=== PATIENT | male | born 1960 | race American Indian/Alaskan Native ===

== ENCOUNTER 2019-02-07 11:20 | Day surgery (SDC) | payer OTHER ==
[~2019-02-07 11:20] MED LIST: SODIUM CHLORIDE 0.9% 1000 ML 1,000 ML IV SCH
[2019-02-07] MEDS ORDERED: LIDOCAINE MPF (2%) 20 MG/1 ML VIAL 5 ML ONE (11:30)
--- NOTE | 2019-02-07 11:30 | Anesthesia Day of Surgery ---
Anesthesia Day of Surgery - Day of Surgery Patient Examined: Yes Patient H&P Reviewed: Yes Patient is NPO: Yes Beta Blockers: No Cardiac Clearance: No Pulmonary Clearance: No Matthew's Test: N/A
--- NOTE | 2019-02-07 11:45 | Anesthesia Consultation ---
Anesthesia Consult and Med Hx Date of service: 02/07/19 - Airway Anesthetic Teeth Evaluation: Good ROM Head & Neck: Adequate Mental/Hyoid Distance: Adequate Mallampati Class: Class IV Intubation Access Assessment: Possibly Difficult - Pre-Operative Health Status ASA Pre-Surgery Classification: ASA3 Proposed Anesthetic Plan: General, MAC - Cardiovascular System Hx Hypertension: Yes - Gastrointestinal Hx Ulcer: No (h/o polyps)
[2019-02-07] MEDS ORDERED: WATER FOR IRRIG STERILE 250 ML BOTTLE IR ONE (11:49)
[2019-02-07] MEDS ORDERED: SIMETHICONE 40 MG/0.6 ML ORAL DROP 30ML PO ONE (12:06)
[2019-02-07] MEDS ORDERED: PROPOFOL 200 MG/20 ML VIAL IV ONE ×2 (12:34)
--- NOTE | 2019-02-07 12:34 | Operative Report ---
Operative Report Operative Report: Procedure: Colonoscopy with Multiple Hot Biopsy polypectomies, Polyp Ablations. Attending physician: Emmett Casillas M.D. Hand Miter Operator: Emmett Casillas M.D. Indication: Patient is a 61-year-old male who presents for colonoscopy because of a personal history of colon polyps. This colonoscopy serves to evaluate patient so that treatment may be directed based on the findings. Consent: Informed consent was obtained after advising the patient and family regarding nature of this procedure, its indications, potential benefits as well as possible complications including but not limited to bleeding perforation and adverse reaction to medication, infection as well as other cardiopulmonary complications. An informed written and verbal consent was then obtained after due opportunity was provided for questions and answers. Monitoring: Patient was monitored continuously with pulse oximetry and electroc ardiographic recordings as well as blood pressure recordings. Vital signs remained stable throughout this procedure with no untoward events. Preoperative assessment: Patient was assessed immediately prior to this procedure for capacity to tolerate monitored anesthesia care and moderate sedation as well as general anesthesia. Patient's ASA classification is 2, Mallampati class is 3, Hyomental distance is 3. Instrument: Olympus video colonoscope CF-HQ 190L Medications: Propofol given intravenously in divided doses. For details please refer to anesthesia records. Description of procedure: Patient was placed in the left lateral decubitus position after achieving sedation, a digital rectal examination was performed following which the colonoscope was introduced into the anal verge and advanced to the cecum which was identified by the cecal valve, the appendiceal orifice, as well as by the cecal strap and direct transillumination. The colonoscope was subsequently withdrawn with careful inspection of all mucosal surfaces. Patient tolerated this procedure well and was subsequently taken to the recovery room. The following findings were noted. Findings: [place] bowel preparation scale score : 6. : Patient had adequate colonoscopic preparation with no significant residual stool in the right colon and transverse colon and left colon. The overall preparation therefore deemed a dequate with a scale score of 6. The withdrawal time from the cecum was greater than 6 minutes. The cecum, ascending colon, transverse colon, descending colon, sigmoid colon and rectum were carefully examined. Patient had substantial retained stool in the cecum however this was completely irrigated until the cecum was clear of stool. In the cecum, patient had 3 diminutive polyps. 2 flat polyps measuring approximately 4 mm each which were completely ablated and a sessile 6 mm polyp which was removed by hot biopsy polypectomy and retrieved. In the transverse colon, patient had 3 diminutive polyps each measuring approximately 5 mm. 2 polyps were sessile one was flat. All 3 polyps removed by hot biopsy polypectomy and retrieved. The descending colon was normal. The sigmoid colon was normal. The rectum was normal.. On a retroflexed view of the anal verge, patient had internal hemorrhoids. Impression: Cecal polyp status post hot biopsy polypectomy Cecal polyps status post ablation Multiple transverse colon polyps status post hot biopsy polypectomy Internal hemorrhoids Plan: Follow pathology report. High-fiber diet. Repeat colonoscopy in 5 years
--- NOTE | 2019-02-07 12:34 | Discharge Summary ---
Short Stay Discharge Plan Activity: advance as tolerated Weight Bearing Status: Weight Bear as Tolerated Diet: regular Follow up with: GUEVARA ROBERTS MD [Primary Care Provider] - 7 Days
[2019-02-07 13:03] VITALS: BP 158/97
--- NOTE | 2019-02-07 13:16 | Post Anesthesia Evaluation ---
- Post Anesthesia Evaluation Patient Participated: Yes Airway Patent: Yes Stable Respiratory Function: Yes Nausea/Vomiting: No Temp > 96.8F: Yes Pain Manageable: Yes Adequeate Hydration: Yes Anesthesia Complications: No Block Receding Appropriately: Not Applicable Patient on Ventilator: No
== END 2019-02-07 13:11 | disposition home or self-care (01) ==
LOC: GIO 11:20
PROVIDERS: ATTEND Internal Medicine Gastroenterology
DX: Z12.11 Encounter for screening for malignant neoplasm of colon (principal); D12.3 Benign neoplasm of transverse colon; K63.5 Polyp of colon; I10 Essential (primary) hypertension; Z98.890 Other specified postprocedural states; Z79.899 Other long term (current) drug therapy
CPT/HCPCS: 45384; 45388; 88305; J2704; J7030